=== PATIENT | male | born 1945 | race Caucasian/White ===

== ENCOUNTER → 2019-09-24 | Outpatient (CLI) | payer MEDICARE | LOC: M.WC 09:39 | DX: E11.622 Type 2 diabetes mellitus with other skin ulcer (principal); I87.312 Chronic venous hypertension (idiopathic) with ulcer of left lower extremity; L97.822 Non-pressure chronic ulcer of other part of left lower leg with fat layer exposed; E11.40 Type 2 diabetes mellitus with diabetic neuropathy, unspecified; E78.5 Hyperlipidemia, unspecified; M48.00 Spinal stenosis, site unspecified; Z86.73 Personal history of transient ischemic attack (TIA), and cerebral infarction without residual deficits; Z79.82 Long term (current) use of aspirin ==

== ENCOUNTER → 2019-09-27 | Outpatient (CLI) | payer MEDICARE | LOC: M.WC 04:52 | DX: E11.622 Type 2 diabetes mellitus with other skin ulcer (principal); I87.312 Chronic venous hypertension (idiopathic) with ulcer of left lower extremity; L97.821 Non-pressure chronic ulcer of other part of left lower leg limited to breakdown of skin; E11.40 Type 2 diabetes mellitus with diabetic neuropathy, unspecified; E78.5 Hyperlipidemia, unspecified; M48.00 Spinal stenosis, site unspecified; Z86.73 Personal history of transient ischemic attack (TIA), and cerebral infarction without residual deficits; Z79.82 Long term (current) use of aspirin ==

== ENCOUNTER → 2019-10-01 | Outpatient (CLI) | payer MEDICARE | LOC: M.WC 01:09 | DX: E11.622 Type 2 diabetes mellitus with other skin ulcer (principal); I87.312 Chronic venous hypertension (idiopathic) with ulcer of left lower extremity; L97.822 Non-pressure chronic ulcer of other part of left lower leg with fat layer exposed; E78.5 Hyperlipidemia, unspecified; M48.00 Spinal stenosis, site unspecified; Z86.73 Personal history of transient ischemic attack (TIA), and cerebral infarction without residual deficits ==

== ENCOUNTER → 2019-10-08 | Outpatient (CLI) | payer MEDICARE | LOC: M.WC 02:00 | DX: E11.622 Type 2 diabetes mellitus with other skin ulcer (principal); I87.312 Chronic venous hypertension (idiopathic) with ulcer of left lower extremity; L97.822 Non-pressure chronic ulcer of other part of left lower leg with fat layer exposed; E78.5 Hyperlipidemia, unspecified; M48.00 Spinal stenosis, site unspecified; Z86.73 Personal history of transient ischemic attack (TIA), and cerebral infarction without residual deficits ==

== ENCOUNTER → 2019-10-15 | Outpatient (CLI) | payer MEDICARE | LOC: M.WC 03:06 | DX: E11.622 Type 2 diabetes mellitus with other skin ulcer (principal); I87.312 Chronic venous hypertension (idiopathic) with ulcer of left lower extremity; L97.822 Non-pressure chronic ulcer of other part of left lower leg with fat layer exposed; E78.5 Hyperlipidemia, unspecified; I10 Essential (primary) hypertension; M48.00 Spinal stenosis, site unspecified; Z86.73 Personal history of transient ischemic attack (TIA), and cerebral infarction without residual deficits ==

== ENCOUNTER → 2019-10-22 | Outpatient (CLI) | payer MEDICARE | LOC: M.WC 04:26 | DX: E11.622 Type 2 diabetes mellitus with other skin ulcer (principal); I87.312 Chronic venous hypertension (idiopathic) with ulcer of left lower extremity; L97.821 Non-pressure chronic ulcer of other part of left lower leg limited to breakdown of skin; L03.116 Cellulitis of left lower limb; E78.5 Hyperlipidemia, unspecified; M48.00 Spinal stenosis, site unspecified; Z86.73 Personal history of transient ischemic attack (TIA), and cerebral infarction without residual deficits ==

== ENCOUNTER → 2019-10-29 | Outpatient (CLI) | payer MEDICARE | LOC: M.WC 02:53 | DX: E11.622 Type 2 diabetes mellitus with other skin ulcer (principal); I87.312 Chronic venous hypertension (idiopathic) with ulcer of left lower extremity; L97.822 Non-pressure chronic ulcer of other part of left lower leg with fat layer exposed; E78.5 Hyperlipidemia, unspecified; M48.00 Spinal stenosis, site unspecified; Z86.73 Personal history of transient ischemic attack (TIA), and cerebral infarction without residual deficits ==

== ENCOUNTER 2019-11-05 09:53 | Observation (INO) | payer MEDICARE ==
[~2019-11-05] VITALS: Ht 182.9 cm; Wt 118.9 kg
[2019-11-05 10:03] VITALS: BP 177/74
[2019-11-05] MEDS ORDERED: COZAAR 25 MG TA25 M1 PO (10:08)
[2019-11-05] MEDS ORDERED: METFORMIN HCL500 M3 PO (10:08)
[2019-11-05] MEDS ORDERED: ALLOPURINOL 10100 M2 PO (10:09)
[2019-11-05] MEDS ORDERED: TOPROL XL25 MG PO (10:09)
[2019-11-05] MEDS ORDERED: GLIPIZIDE5 MG PO (10:09)
[2019-11-05 10:38] LABS: ABSOLUTE BASOPHILS 0.2 thou/uL (0.0-0.2); ABSOLUTE EOSINOPHILS 0.2 thou/uL (0.0-0.7); ABSOLUTE LYMPHOCYTES 1.4 thou/uL (0.8-5.3); ABSOLUTE MONOCYTES 0.6 thou/uL (0.0-1.2); ABSOLUTE NEUTROPHILS 4.4 thou/uL (1.6-8.1); BASOPHILS 2.7 %; EOSINOPHILS 2.6 %; HEMATOCRIT 40.9 % (42.0-52.0); HEMOGLOBIN 13.7 gm/dL (14.0-18.0); LYMPHOCYTES 20.6 %; MCH 30.7 pg (26.0-34.0); MCHC 33.5 g/dL (28.0-37.0); MCV 91.7 fL (80.0-100.0); MONOCYTES 9.2 %; MPV 8.8 fl. (7.2-11.1); NUCLEATED RBCS 0 /100WBC; PLATELET COUNT* 183 thou/uL (150-400); POLYS 64.9 %; RBC 4.46 mil/uL (4.50-6.00); RDW-CV 14.6 % (10.5-14.5); WBC 6.8 thou/uL (4.0-11.0)
[2019-11-05 10:48] LABS: CALCIUM 8.8 mg/dL (8.5-10.1); POTASSIUM 4.5 mmol/L (3.5-5.1)
[2019-11-05 10:50] LABS: APTT 28.4 Seconds (25.0-31.3); PROTIME 10.5 Seconds (9.20-11.50)
[2019-11-05 10:57] LABS: ALBUMIN 3.6 g/dL (3.4-5.0); TOTAL BILIRUBIN 0.6 mg/dL (<0.1-1.0); TOTAL PROTEIN 7.3 g/dL (6.4-8.2)
--- NOTE | 2019-11-05 11:03 | EKG ---
[place] [address] ELECTROCARDIOGRAM REPORT Name: DAVON ARIAS Room: 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: [facility] [place] : 1945 Requested By: Yadi Broderick Order Number: [id number] MD: Jose Varner Measurements Intervals [place] Rate: 98 P: 32 [place]: 238 QRS: -16 QRSD: 110 T: 6 QT: 408 QTc: 522 Interpretive Statements Sinus rhythm Ventricular trigeminy brief sinus pause Prolonged [place] interval Borderline left axis deviation Prolonged QT interval No previous ECG available for comparison Electronically Signed On 11-05-2019 11:01:32 CDT by Jose Varner [email or web address] <ELECTRONICALLY SIGNED> By: Jose Varner MD, FACC 11/05/19 1101 1002 1002 Jose Varner MD, [facility] /EPI
--- NOTE | 2019-11-05 13:20 | NUR ---
PT UP TO BR, VOID X1; AMBULATED WITH WALKER WITH MINIMAL ASSISTED. PT DENIES DIZZINESS
[2019-11-05 13:32] LABS: URINE BILIRUBIN NEGATIVE (Negative); URINE BLOOD NEGATIVE (Negative); URINE CLARITY CLEAR; URINE COLOR YELLOW; URINE GLUCOSE-RANDOM NEGATIVE (Negative); URINE KETONES NEGATIVE (Negative); URINE LEUKOCYTES-REFLEX NEGATIVE (Negative); URINE NITRITE-REFLEX NEGATIVE (Negative); URINE PROTEIN NEGATIVE (Negative); URINE UROBILINOGEN 0.2 E.U./dl (0.2-1.0)
[2019-11-05 15:48] VITALS: BP 151/72
[2019-11-05 16:00] VITALS: BP 162/71
[2019-11-05 16:39] LABS: CHOLESTEROL 113 mg/dL (<200); HDL CHOLESTEROL 38 mg/dL (>40); LDL CHOLESTEROL 55 mg/dL (<100); SERUM ASSESSMENT CLEAR; TRIGLYCERIDE 101 mg/dL (<150); VLDL 20 mg/dL (<40)
--- NOTE | 2019-11-05 19:00 | NUR ---
ASSUMED PT CARE AROUND 1615. ASSESSMENT COMPLETED CHARTED. ABLE TO MAKE NEEDS KNOWN. UP WITH WALKER. RESTING IN BED MOST OF THE NIGHT. NO C/O PAIN OR DISCOMFORT. WILL CONTINUE TO MONITOR.
[2019-11-05 20:30] VITALS: BP 113/49
[2019-11-05 23:59] VITALS: BP 130/75
[2019-11-06 04:05] VITALS: BP 150/80
--- NOTE | 2019-11-06 05:22 | NUR ---
PT A&O X 4. VSS ON RA. PT DENIED PAIN. UP STANDBY WITH WALKER. PT SLEEPING/RESTING THROUGH THE NIGHT. HOURLY ROUNDINGS COMPLETED. WILL CONTINUE TO MONITOR.
[2019-11-06 06:35] LABS: ABSOLUTE EOSINOPHILS 0.2 thou/uL (0.0-0.7); ABSOLUTE LYMPHOCYTES 1.5 thou/uL (0.8-5.3); ABSOLUTE MONOCYTES 0.5 thou/uL (0.0-1.2); ABSOLUTE NEUTROPHILS 4.6 thou/uL (1.6-8.1); BASOPHILS 0.7 %; HEMATOCRIT 41.6 % (42.0-52.0); LYMPHOCYTES 21.8 %; MCH 30.9 pg (26.0-34.0); MCHC 33.7 g/dL (28.0-37.0); MCV 91.6 fL (80.0-100.0); MONOCYTES 7.5 %; MPV 8.6 fl. (7.2-11.1); NUCLEATED RBCS 0 /100WBC; PLATELET COUNT* 200 thou/uL (150-400); RBC 4.54 mil/uL (4.50-6.00); RDW-CV 14.8 % (10.5-14.5); WBC 6.9 thou/uL (4.0-11.0)
[2019-11-06 06:42] LABS: CALCIUM 8.7 mg/dL (8.5-10.1); CREATININE 0.9 mg/dL (0.6-1.3); POTASSIUM 4.5 mmol/L (3.5-5.1)
[2019-11-06 08:00] VITALS: BP 173/68
--- NOTE | 2019-11-06 10:16 | NUR ---
Nutrition: Pt admitted with irregular heartbeat. Consult received for Wound on LLE. Heart Healthy diet ordered. H/o DM, HTN, cellulitiis. Meds noted. BG 116, albumin 3.6. RD will order Flavio for added nutrition in wound healing. Otherwise, low nutrition risk.
--- NOTE | 2019-11-06 10:58 | NUR ---
Pt lives at home with . Pt has supportive children. Pt has RW if needed. No known history of HH or SNF. Pt might be able to dc after echo today and follow up with cardiology as an outpatient according to progress note. SW to remain available to assist with safe dc planning if needs arise.
[2019-11-06 11:24] VITALS: BP 149/79
[2019-11-06 13:03] VITALS: BP 149/79
[2019-11-06] MEDS ORDERED: PANTOPRAZOLE SO40 M1 PO (13:23)
--- NOTE | 2019-11-06 13:55 | NUR ---
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 PT DISCHARGED HOME D/T UNABLE TO HAVE NUC MED STRESS TEST, WILL HAVE ON OUT PT BASIS. DISCHARGED AT APPROX 1350, EDUCATED ON ALL DISCHARGE INSTRUCTIONS INCLUDING MEDICATIONS AND FOLLOW UP APPTS. IV AND DEHYDRATION UNIT OPERATOR REMOVED, HOURLY ROUNDING COMPLETED.
--- NOTE | 2019-11-06 14:15 | 2DMMODE ---
[place] [address] 2 D/M-MODE ECHOCARDIOGRAM Name: DAVON ARIAS Room: [address] Coral Birch#: [id number] Admission: 11/05/19 Attend Phys: Zaki Weston, Discharge: Date of : 49 Date of Service: 11/06/19 1413 Report #: [id number] THIS REPORT FOR: cc: Obed Berrios MD, Bruce D. MD Liston, Michael J. MD [facility] ~ APPROVED REPORT Study performed: 11/06/2019 09:23:22 EXAM: Comprehensive 2D, Doppler, and color-flow Echocardiogram Patient Location: In-Patient Room #: [facility] Status: routine BSA: 2.34 HR: 72 bpm BP: 150/80 mmHg Rhythm: NSR Other Information Study Quality: Good Indications Arrhythmia 2D Dimensions IVSd: 11.65 (7-11mm) LVOT Diam: 23.27 (18-24mm) LVDd: 51.86 mm PWd: 11.51 (7-11mm) Ascending Ao: 35.29 (22-36mm) LVDs: 29.60 (25-40mm) Aortic Root: 37.26 mm Volumes Left Atrial Volume (Systole) LA ESV Index: 35.60 mL/m2 Aortic Valve AoV Peak [place].: 1.65 m/s AO Peak Gr.: 10.89 mmHg LVOT Max P.73 mmHg AO Mean Gr.: 5.90 mmHg LVOT Mean P.56 mmHg LVOT Max V: 0.97 m/s AO V2 VTI: 29.60 cm LVOT Mean V: 0.56 m/s FARIDA (VTI): 2.63 cm2 LVOT V1 VTI: 18.33 [place] [address] 2 D/M-MODE ECHOCARDIOGRAM Name: DAVON ARIAS Room: [address] M.R.#: [id number] Admission: 11/05/19 Attend Phys: Zaki Weston, Discharge: Date of : 49 Date of Service: 11/06/19 1413 Report #: [id number] Mitral Valve E/A Ratio: 1.07 MV Decel. Time: 190.62 ms MV E Max [place].: 0.94 m/s MV PHT: 55.28 ms MVA (PHT): 3.98 cm2 Pulmonary Valve PV Peak [place].: 0.89 m/s PV Peak Gr.: 3.16 mmHg Tricuspid Valve RAP Estimate: 5.00 mmHg TR Peak Gr.: 38.55 mmHg RVSP: 43.00 mmHg PA Pressure: 43.00 mmHg Left Ventricle The left ventricle is normal size. There is normal LV segmental wall motion. There is normal left ventricular wall thickness. Left ventricular systolic function is normal. LVEF is 60-65%. Transmitral Doppler flow pattern suggests impaired LV relaxation. Right Ventricle The right ventricle is normal size. The right ventricular systolic function is normal. Atria Left atrium is mildly dilated. Right atrium is mildly dilated. Aortic Valve Mild aortic valve sclerosis. No aortic regurgitation is present. There is no aortic valvular stenosis. Mitral Valve There is mitral annular calcification. Mild mitral regurgitation. No evidence of mitral valve stenosis. Tricuspid Valve The tricuspid valve is normal in structure. Trace tricuspid regurgitation. The RVSP is 40-45 mmHg. Pulmonic Valve The pulmonary valve is normal in structure. Trace pulmonic regurgitation. [place] [address] 2 D/M-MODE ECHOCARDIOGRAM Name: DAVON ARIAS Room: [address] Queta#: [id number] Admission: 11/05/19 Attend Phys: Zaki Weston, Discharge: Date of : 49 Date of Service: 11/06/19 1413 Report #: [id number] The aortic root is normal in size. IVC is normal in size and collapses >50% with inspiration. Pericardium There is no pericardial effusion. <Conclusion> The left ventricle is normal size. There is normal left ventricular wall thickness. Left ventricular systolic function is normal. LVEF is 60-65%. Transmitral Doppler flow pattern suggests impaired LV relaxation. Mild aortic valve sclerosis. There is no aortic valvular stenosis. Mild mitral regurgitation. Trace tricuspid regurgitation. The RVSP is 40-45 mmHg. IVC is normal in size and collapses >50% with inspiration. Left atrium is mildly dilated. Right atrium is mildly dilated. <ELECTRONICALLY SIGNED> By: Nayan Orellana MD, FACC 11/06/19 1413 [id number] Nayan Orellana MD, FACC /INF
== END 2019-11-06 13:50 | disposition home or self-care (01) ==
LOC: M.TBA-ER 13:54 → M.2W 13:54
PROVIDERS: Personal Emergency Response Attendant; Registered Nurse; ADMIT Internal Medicine
DX: I49.9 Cardiac arrhythmia, unspecified (principal); I73.9 Peripheral vascular disease, unspecified; E11.9 Type 2 diabetes mellitus without complications; Z86.73 Personal history of transient ischemic attack (TIA), and cerebral infarction without residual deficits

== ENCOUNTER → 2019-11-12 | Outpatient (CLI) | payer MEDICARE ==
[~2019-11-12] MED LIST: ALLOPURINOL 10100 M2 PO; COZAAR 25 MG TA25 M1 PO; GLIPIZIDE5 MG PO; METFORMIN HCL500 M3 PO; PANTOPRAZOLE SO40 M1 PO; TOPROL XL25 MG PO
== END ==
LOC: M.WC 07:35
DX: E11.622 Type 2 diabetes mellitus with other skin ulcer (principal); I87.312 Chronic venous hypertension (idiopathic) with ulcer of left lower extremity; L97.822 Non-pressure chronic ulcer of other part of left lower leg with fat layer exposed; E78.5 Hyperlipidemia, unspecified; I48.91 Unspecified atrial fibrillation; M48.00 Spinal stenosis, site unspecified; Z86.73 Personal history of transient ischemic attack (TIA), and cerebral infarction without residual deficits

== ENCOUNTER → 2019-11-19 | Outpatient (CLI) | payer MEDICARE | LOC: M.WC 01:45 | DX: E11.622 Type 2 diabetes mellitus with other skin ulcer (principal); I87.312 Chronic venous hypertension (idiopathic) with ulcer of left lower extremity; L97.828 Non-pressure chronic ulcer of other part of left lower leg with other specified severity; E78.5 Hyperlipidemia, unspecified; I48.91 Unspecified atrial fibrillation; M48.00 Spinal stenosis, site unspecified; Z86.73 Personal history of transient ischemic attack (TIA), and cerebral infarction without residual deficits ==